=== PATIENT | female | born 1955 | race African-American/Black ===

== ENCOUNTER 2016-11-01 10:39 | Day surgery (SDC) | payer OTHER ==
--- NOTE | ~2016-11-01 | EGD ---
EGD REPORT [facility] [address] [place]. [id number] NAME: CLIFF PUENTES : [birth year] STATUS : REG [facility] [place] PAT#: [id number] AGE: 61 ADM/REG DATE : 11/01/16 MR#: [id number] REPORT SERV DATE: 11/01/16 DICTATED BY: JORGE DESHPANDE DATE: 11/01/16 REPORT STATUS : Draft [facility]: [facility] DATE: 11/01/16 [facility] Center Patient Name: Cliff Puentes Date of : 1955 Attending MD: JORGE DESHPANDE MD Procedure Date No Time: 11/01/2016 Procedure: Colonoscopy Indications: Screening for colorectal malignant neoplasm Referring MD: GRACIE WRIGHT MD, TED SILVER Medicines: as per anesthesia Complications: No immediate complications. Procedure: Pre-Anesthesia Assessment: - ASA Grade Assessment: II - A patient with mild systemic disease. After I obtained informed consent, the scope was passed under direct vision. Throughout the procedure, the patient's blood pressure, pulse, and oxygen saturations were monitored continuously. The PCF [id number] was introduced through the anus and advanced to the cecum, identified by appendiceal orifice and ileocecal valve. The colonoscopy was performed without difficulty. The patient tolerated the procedure. The quality of the bowel preparation was adequate to identify polyps. Findings: The perianal and digital rectal examinations were normal. Internal hemorrhoids were found during endoscopy and were mild. Impression: - Internal hemorrhoids. Recommendation: - Repeat colonoscopy in 10 years for surveillance. Procedure Code(s): --- Professional --- 47073, Colonoscopy, flexible, proximal to splenic flexure; diagnostic, with or without collection of specimen(s) by brushing or washing, with or without colon decompression (separate procedure) Diagnosis Code(s): --- Professional --- K64.8, Other hemorrhoids Z12.11, Encounter for screening for malignant neoplasm of colon CPT copyright 2013 [employer]. All rights reserved. EGD REPORT [facility] [address] [place] [address] NAME: CLIFF PUENTES : [birth year] STATUS : REG [facility]#: [id number] AGE: 61 ADM/REG DATE : 11/01/16 MR#: [id number] REPORT SERV DATE: 11/01/16 DICTATED BY: JORGE DESHPANDE. DATE: 11/01/16 REPORT STATUS : Draft TRANSCRIBED BY: [employer] DATE: 11/01/16 The codes documented in this report are preliminary and upon stator tester review may be revised to meet current compliance requirements. JORGE DESHPANDE MD 11/01/2016 11:58 AM This report has been signed electronically. Number of Addenda: 0 Note Initiated On: 11/01/2016 11:32 AM Scope Withdrawal Time 0 hours 6 minutes 1 second [id number] [place] [id number]
[~2016-11-01 10:39] MED LIST: AMIT100 PO; FLEX PO; HYDROCHLOROT25 MG PO; LOP50 PO; LYRICA75 PO; MULTIVIT/MIN PO; VITC500 PO
== END 2016-11-01 23:59 | disposition home or self-care (01) ==
LOC: DMU 10:39
PROVIDERS: Internal Medicine Gastroenterology
PROC: 0DJD8ZZ Inspection of Lower Intestinal Tract, Via Natural or Artificial Opening Endoscopic (ICD-10-PCS; principal; 2016-11-01 12:00)
DX: Z12.11 Encounter for screening for malignant neoplasm of colon (principal); K64.8 Other hemorrhoids; I10 Essential (primary) hypertension; I25.10 Atherosclerotic heart disease of native coronary artery without angina pectoris; M19.90 Unspecified osteoarthritis, unspecified site; D64.9 Anemia, unspecified; G43.909 Migraine, unspecified, not intractable, without status migrainosus; Z79.899 Other long term (current) drug therapy